=== PATIENT | male | born 1945 | race Caucasian/White ===

== ENCOUNTER 2017-08-17 13:14 | Emergency (ER) | payer MEDICARE, BC ==
[~2017-08-17] VITALS: Ht 182.8 cm; Wt 102.1 kg
[~2017-08-17 13:14] MED LIST: ALEVE220 M1 PO; AUGMENTIN 875 M1 TAB PO; Hydrocodone/Ace1 TA1 PO; LIPITOR20 MG PO; LORAZEPAM PO; MOTRIN800 MG PO; PHENERGAN25 M1 PO
[2017-08-17 13:28] VITALS: BP 154/89
[2017-08-17] MEDS ORDERED: RESTORIL7.5 M1 PO (13:29)
[2017-08-17] MEDS ORDERED: Bactroban Oint22 GM T (13:35)
[2017-08-17] MEDS ORDERED: KEFLEX500 M1 PO (13:35)
[2017-08-17] MEDS ORDERED: SEPTDS PO (13:35)
== END 2017-08-17 13:41 | disposition home or self-care (01) ==
LOC: ED 13:14
DX: L02.11 Cutaneous abscess of neck (principal); R03.0 Elevated blood-pressure reading, without diagnosis of hypertension; Z90.49 Acquired absence of other specified parts of digestive tract; Z98.890 Other specified postprocedural states; Z88.1 Allergy status to other antibiotic agents; Z79.899 Other long term (current) drug therapy

== ENCOUNTER → 2018-03-28 | Outpatient (CLI) | payer MEDICARE, BC ==
[~2018-03-28] MED LIST changes: +Bactroban Oint22 GM T; +KEFLEX500 M1 PO; +RESTORIL7.5 M1 PO; +SEPTDS PO
== END | disposition home or self-care (01) ==
LOC: RAD 11:35
DX: M75.92 Shoulder lesion, unspecified, left shoulder (principal); M75.91 Shoulder lesion, unspecified, right shoulder; A69.23 Arthritis due to Lyme disease

== ENCOUNTER → 2019-03-12 | Outpatient (CLI) | payer MEDICARE, BC ==
[~2019-03-12] MED LIST changes: +PREDNISONE10 M1 PO; +XARELTO1 EACH PO; +ZOLPIDEM TART10 MG PO
== END | disposition home or self-care (01) ==
LOC: US 14:51
DX: I82.511 Chronic embolism and thrombosis of right femoral vein (principal)

== ENCOUNTER → 2020-05-02 | Outpatient (CLI) | payer MEDICARE, BC | END | disposition home or self-care (01) | LOC: LAB 00:29 | PROVIDERS: ATTEND Family Medicine | DX: R51.9 Headache, unspecified (principal) ==

== ENCOUNTER → 2020-05-20 | Outpatient (CLI) | payer MEDICARE, BC | END | disposition home or self-care (01) | LOC: COVID19 10:37 | PROVIDERS: ATTEND Hospitalist | DX: U07.1 COVID-19 (principal) ==

== ENCOUNTER → 2020-11-11 | Outpatient (CLI) | payer MEDICARE, BC ==
[2020-11-11 09:14] LABS: BUN 16 mg/dl (7-24); CHLORIDE 107 mmol/L (98-107); CHOLESTEROL 177 mg/dL (<200); CREATININE 1.03 mg/dL (0.70-1.30); LDL CHOLESTEROL 114 mg/dL (9-159); SODIUM 141 mmol/L (136-145); TRIGLYCERIDES 86 mg/dl (<150)
== END | disposition home or self-care (01) ==
LOC: LAB 01:28 → US 09:00
PROVIDERS: ATTEND Family Medicine
DX: Z13.6 Encounter for screening for cardiovascular disorders (principal); E78.5 Hyperlipidemia, unspecified

== ENCOUNTER → 2023-09-20 | Outpatient (CLI) | payer MEDICARE, BC ==
[2023-09-20 12:38] LABS: BUN 13 mg/dl (9-23); CHLORIDE 107 mmol/L (98-107); CHOLESTEROL 188 mg/dL (<200); LDL CHOLESTEROL 125 mg/dL (9-159); POTASSIUM 4.5 mmol/L (3.4-5.1); TRIGLYCERIDES 127 mg/dl (<150)
== END | disposition home or self-care (01) ==
LOC: LAB 11:33
PROVIDERS: ATTEND Family Medicine
DX: Z13.220 Encounter for screening for lipoid disorders (principal); Z13.1 Encounter for screening for diabetes mellitus; E78.5 Hyperlipidemia, unspecified